=== PATIENT | male | born 1980 | race Two or more races ===

== ENCOUNTER 2024-04-22 12:27 | Emergency (ER) | payer MEDICAID, SELFPAY ==
--- NOTE | 2024-04-22 12:31 | EKG_ITS ---
[facility] Test Date: 2024-04-22 Pat Name: DANICA LOVE Department: Room: - Gender: Male Washer Hand: : 1980 Requested By: Desean Faith Order Number: [id number] Reading MD: Desean Faith Measurements Intervals [place] Rate: 58 P: 82 CA: 165 QRS: 42 QRSD: 95 T: 26 QT: 421 QTc: 414 Interpretive Statements SINUS BRADYCARDIA No previous ECG available for comparison /store/S0/[id number].pdf
--- NOTE | 2024-04-22 12:33 | PD.EDADULT ---
ED General RME/HPI General Chief complaint: Syncope / Near Syncope Stated complaint: SYNCOPAL Time Seen by Provider: 04/22/24 12:30 Arrival date/time: 04/22/24 12:27 CC: Syncope HPI patient presents to the ER via EMS report initial vital sign of 70/40. The patient states he was in [employer], felt lightheaded dizzy and Woke up on the floor. Patient just returned from taking his daughter to the clinic all family members are ill daughter diagnosed with influenza B and strep today. Patient denies chest pain shortness of breath or difficulty breathing. EMS report hypotension with bradycardia not warm to touch. Patient has no other complaints Related Data Home Medications ?Medication ?Instructions ?Recorded ?Confirmed No Known Home Medications 02/02/23 02/02/23 Allergies Allergy/AdvReac Type Severity Reaction Status Date / Time No Known Allergies Allergy Verified 02/02/23 12:26 Review of Systems Review of Systems Narrative Review of Systems: GEN: No fever, no chills, no weight loss EYES: No discharge, no visual changes, no pain HEENT: No ear pain, no congestion, no sore throat PULM: No shortness of breath, no cough, no congestion CV: No chest pain, no dyspnea on exertion, no palpitations GI: No nausea, no vomiting, no diarrhea, no pain, no constipation : No frequency, no urgency, no dysuria MUSC/SKEL: No joint pain, no back pain SKIN: No rash PSYCH: No hallucinations, no depression HEME/LYMPH: No easy bleeding or bruising tendencies NEURO: No weakness, no headache Past Medical History Past Medical History NEUROLOGIC: Negative Neurological Disorders or Seizures CARDIAC: Negative Cardiac Disorders or Congestive Heart Failure RESPIRATORY: Negative Chronic Obstructive Pulmonary Disease (COPD) GASTROINTESTINAL: Negative Gastrointestinal Disorders GENITOURINARY: Negative Genitourinary Disorders or Renal Disease MUSCULOSKELETAL: Negative Musculoskeletal Disorders ENDOCRINE: Negative Endocrine Disorders, Diabetes Mellitus Type 1 or Diabetes Mellitus Type 2 HEMATOLOGIC: Negative Blood Disorders OTHER HISTORY: Negative Autoimmune Disease, Blood Transfusions, Anesthesia Reactions, MRSA, Clostridium Difficile or Cancer Social History SMOKING STATUS: Current some day smoker ED Exam Narrative Physical exam: [General: Not in any acute distress Head normocephalic HEENT: Eyes pupils are PERRLA EOMs are intact. Mouth pink dry membranes uvula is midline swallow symmetrical phonation is normal, nose: No rhinorrhea or otorrhea. All other subsystems of HEENT are within acceptable limits Neck is supple nontender Chest equal chest rise nontender to palpation Respiratory: Clear to auscultation no wheezes crackles or rubs CV: Rate rhythm is regular no murmurs rubs or clicks Abdomen is flat, soft nontender no masses positive bowel sounds all 4 quadrants Back: No CVA tenderness no spinous process tenderness from cervical spine thoracic and lumbar spine Skin: Intact no petechiae rash induration ulceration or crepitus Extremities: Moving all extremity against resistance cap refill less than 2 seconds neurosensory intact Neuro: Awake alert oriented x3 Glascow coma 15 no focal deficits] Course Quality Measures VTE prophylaxis Orders Category Date Time Status Bedside Influenza A&B Antigen Test NOW Care 04/22/24 12:30 Completed EKG (ED ONLY) *Do not use* NOW Care 04/22/24 12:32 Completed Saline [Insert IV] NOW Care 04/22/24 12:30 Active EKG (ED Only) Stat Exams 04/22/24 12:31 Draft CMP [Comprehensive Metabolic Panel] Stat Lab 04/22/24 12:46 Completed Troponin I Stat Lab 04/22/24 12:46 Completed Sodium Chloride 0.9% 1000 ml [Ns] 1,000 ml Med 04/22/24 12:31 Discontinued IV 999 mls/hr Vital Signs Vital signs: Vital Signs Temperature 97.9 F 04/22/24 12:54 Pulse Rate 59 L 04/22/24 12:54 Respiratory Rate 16 04/22/24 12:54 Blood Pressure 119/64 04/22/24 12:54 Pulse Oximetry (%) 100 04/22/24 12:54 Oxygen Delivery Method Room Air 04/22/24 12:54 [facility] Patient data External records reviewed:: [facility] previous records and EMS form Clinical information provided by:: patient and EMS Social determinants that could affect healthcare access:: none Patient has the following chronic illnesses:: None How is presenting disease/condition affected by chronic disease/condition?: uneffected by Evaluation data The following diagnostics were reviewed and interpreted by me:: lab results and EKG tracing(s) Lab and/or radiology exams considered but not ordered:: EKG performed at 1315 shows a ventricular rate of 5 a NM interval 165 QRS 95 QTc of 417 this is sinus bradycardia. CMP shows no significant electrolyte imbalances renal impairment transaminitis or T. bili elevation. Flu B positive. Interpretation Summary: Patient has flu, with syncopal event. Patient has had no deterioration of neurologic status throughout his visit emergency room and no syncopal episodes. This time the patient states he feels much better after IV fluids. This time and comfortable discharging the patient home. None Medications Medications considered but not ordered:: None Medication administrations:: Medication Administration History Discontinued Medications Sodium Chloride (Ns) 1,000 mls @ 999 mls/hr IV .Q1H1M ONE Stop: 04/22/24 13:31 Last Admin: 04/22/24 13:24 Dose: 999 mls/hr Documented By: DOMINIC None Consultations Consultation(s) initiated? (list below): No Diagnosis Differential Diagnosis ED Complaint MDM: Syncope electrolyte imbalance dehydration Most likely diagnosis given after review of the tests above:: Syncope influenza B Admission Indicated Admission indicated?: not indicated Explain why admission is indicated or not indicated:: Stable for discharge Admission Request Was there a request for admission?: No Disposition Plan Disposition Plan: Discharge Discharge Attestation Discharge Attestation: The patient and all family members were given an opportunity to ask questions and understood the discharge instructions. Discharge instructions specifically effects, indications for sooner follow up or return to the emergency department, and the expected course of current diagnosis. Patient condition: Stable Medical Decision Making Differential Diagnosis Differential Diagnosis: Syncope electrolyte imbalance dehydration Lab Data 04/22/24 12:46 Labs: Lab Results 04/22/24 Range/Units 12:46 Sodium 137 (136-145) mMol/L Potassium 3.6 (3.4-5.1) mMol/L Chloride 106 (98-107) mMol/L Carbon Dioxide 23.1 (20.0-31.0) mMol/L Anion Gap 8 (7-16) BUN 16 (9-23) mg/dL Creatinine 1.2 (0.6-1.3) mg/dL Estim Creat Clear Calc 76.0 (>60) mL/min eGFR > 60 (60 - ) See Note BUN/Creatinine Ratio 13 (12-20) Ratio Glucose 140 H (74-106) mg/dL Calculated Osmolality 277 (275-295) Calcium 8.1 L (8.3-10.6) mg/dL Corrected Calcium 8.3 L (8.5-10.1) mg/dL Total Bilirubin 0.3 (0.3-1.2) mg/dL AST 16 (0-34) U/L ALT 12 (10-49) U/L Alkaline Phosphatase 50 (46-116) U/L Troponin I < 0.002 (0.0-0.045) ng/mL Total Protein 5.8 (5.7-8.2) gm/dL Albumin 3.7 (3.5-5.0) gm/dL Globulin 2.1 L (2.3-3.5) gm/dL Albumin/Globulin Ratio 1.8 (1.2-2.2) Discharge Plan Plan Patient Disposition: HOME (Self Care) Patient condition on transfer: Stable Prescriptions/Referrals Prescriptions/Med Rec: No Action No Known Home Medications Referrals: Kirit Clark MD [Primary Care Provider] - In 1 week Problem List Clinical Impression: Syncope, Influenza B Patient/Caregiver Discharge Instructions Education Materials: ED Influenza (Adult), ED Fainting, Uncertain Cause Print Language: Vietnamese Stand Alone Forms: [employer] Award Info., Work/School Release, Patient Portal Info Letter PA/[employer] Supervising Physician PA/KIRSTEN Supervising Physician: Desean St ENP
[2024-04-22 12:54] VITALS: BP 119/64; PULSE 58; PULSE 59; RESP 16; RESP 18; TEMP 36.6; O2SAT 100; O2SAT 97; BMI 25.0
[2024-04-22] MEDS: SODIUM CHLORIDE 0.9% 1000 ML 1,000 ML 999 ML IV (13:24)
[2024-04-22 13:31] LABS: Alanine Aminotransferase 12 U/L (10-49); Albumin, Serum 3.7 gm/dL (3.5-5.0); Albumin/Globulin Ratio 1.8 (1.2-2.2); Alkaline Phosphatase 50 U/L (46-116); Anion Gap 8 (7-16); Aspartate Amino Transferase 16 U/L (0-34); BUN/Creatinine Ratio 13 Ratio (12-20); Bilirubin,Total 0.3 mg/dL (0.3-1.2); Blood Urea Nitrogen 16 mg/dL (9-23); Calcium 8.1 mg/dL (8.3-10.6); Calcium (Corrected) 8.3 mg/dL (8.5-10.1); Carbon Dioxide 23.1 mMol/L (20.0-31.0); Chloride 106 mMol/L (98-107); Creatinine (Component) 1.2 mg/dL (0.6-1.3); Globulin 2.1 gm/dL (2.3-3.5); Glucose 140 mg/dL (74-106); Osmolality,Calculated 277 (275-295); Potassium 3.6 mMol/L (3.4-5.1); Sodium 137 mMol/L (136-145); Total Protein 5.8 gm/dL (5.7-8.2); Troponin I < 0.002 ng/mL (0.0-0.045); eGFR > 60 See Note
[2024-04-22 15:31] VITALS: PULSE 69; RESP 15; O2SAT 100
== END 2024-04-22 15:35 | disposition home or self-care (01) ==
PROVIDERS: Registered Nurse General Practice; Emergency Provider Emergency Medicine; PCP Family Medicine
DX: J10.1 Influenza due to other identified influenza virus with other respiratory manifestations (principal); R55 Syncope and collapse; F17.200 Nicotine dependence, unspecified, uncomplicated
CPT/HCPCS: 36415; 80053; 84484; 87400; 93005; 96360; 99284; J7030